=== PATIENT | female | born 1975 | race Caucasian/White ===

== ENCOUNTER 2023-01-25 06:56 | Day surgery (SDC) | payer OTHER ==
[~2023-01-25] VITALS: Ht 162.6 cm; Wt 85.7 kg
[~2023-01-25 06:56] MED LIST: ALPHAGAN P0.1 % OS; DORZOLAMIDE HCL2 % IO; FIORICET 50-3001 CAP PO; NORVASC5 M1 PO; XELPROS0.005 % OS
[2023-01-25 09:06] VITALS: BP 119/83
== END 2023-01-25 09:30 | disposition home or self-care (01) | DRG 951 ==
LOC: ENDO 06:56
PROVIDERS: ATTEND Surgery
PROC: 0DJD8ZZ Inspection of Lower Intestinal Tract, Via Natural or Artificial Opening Endoscopic (ICD-10-PCS; principal; 2023-01-25)
DX: Z12.11 Encounter for screening for malignant neoplasm of colon (principal); K57.30 Diverticulosis of large intestine without perforation or abscess without bleeding; I10 Essential (primary) hypertension; H40.9 Unspecified glaucoma